=== PATIENT | female | born 1975 | race Caucasian/White ===

== ENCOUNTER 2018-06-04 09:02 | Day surgery (SDC) | payer MEDICAID ==
[~2018-06-04] VITALS: Ht 152.4 cm; Wt 60.3 kg
[~2018-06-04 09:02] MED LIST: BALANCED SALT IRRIG SOLN COMB2 500ML OP ONE
[2018-06-04] MEDS ORDERED: LACTATED RINGERS 1,000 ML IV SCH (09:15)
[2018-06-04 10:06] LABS: UCG SCREEN NEGATIVE
[2018-06-04] MEDS ORDERED: DONE5TAB33 PO (10:37)
[2018-06-04] MEDS ORDERED: SERT50TA PO (10:37)
[2018-06-04] MEDS ORDERED: GABA-290 PO (10:37)
[2018-06-04] MEDS ORDERED: GABA-531 PO (10:37)
[2018-06-04] MEDS ORDERED: IBUP-2271 PO (10:37)
[2018-06-04] MEDS ORDERED: FENTANYL CITRATE/PF 50MCG/ML 2ML VIAL ONE (10:57)
[2018-06-04] MEDS ORDERED: MIDAZOLAM HCL 2 MG/2 ML VIAL ONE (10:57)
[2018-06-04] MEDS ORDERED: PROPOFOL 200MG/20ML VIAL IV ONE (10:57)
[2018-06-04] MEDS ORDERED: CLINDAMYCIN 600MG PREMIX 50 ML IV ONE (11:00)
[2018-06-04] MEDS ORDERED: GLYCOPYRROLATE 0.2 MG/ML 2ML VIAL ONE (11:51)
[2018-06-04] MEDS ORDERED: MEPERIDINE HCL/PF 25MG/ML CPJ IV PRN (12:00)
[2018-06-04] MEDS ORDERED: MORPHINE SULFATE 4 MG/ML CPJ (NOT FOR IM USE) IV PRN (12:00)
[2018-06-04] MEDS ORDERED: FENTANYL CITRATE/PF 50MCG/ML 2ML VIAL IV PRN (12:00)
[2018-06-04] MEDS ORDERED: ONDANSETRON HCL 4MG/2ML INJ IV PRN (12:00)
[2018-06-04] MEDS ORDERED: ONDANSETRON HCL 4MG/2ML INJ ONE (12:02)
[2018-06-04] MEDS ORDERED: DEXAMETHASONE 4MG/ML 1ML VIAL ONE (12:02)
[2018-06-04] MEDS ORDERED: KETOROLAC 30MG/ML VIAL IV NR (14:00)
[2018-06-04 14:09] VITALS: BP 125/80
[2018-06-04] MEDS ORDERED: BALANCED SALT IRRIG SOLN 15ML ONE (15:09)
[2018-06-04] MEDS ORDERED: LIDOCAINE HCL 2%/EPINEPHRINE 1:100,000 20 ML VIAL INFIL ONE (15:09)
[2018-06-04] MEDS ORDERED: PREDNISOLONE ACETATE 1% OPHTH DROPS 1ML ONE (15:09)
[2018-06-04] MEDS ORDERED: PHENYLEPHRINE HCL 2.5% OPHTH DROPS 2ML ONE (15:09)
[2018-06-04] MEDS ORDERED: BUPIVACAINE HCL/PF 0.75% (7.5MG/ML) 10ML ONE (15:09)
[2018-06-04] MEDS ORDERED: OFLOXACIN 0.3% OPHTH SOLN 5ML ONE (15:14)
== END 2018-06-04 15:00 | disposition home or self-care (01) ==
LOC: OR 09:02
PROVIDERS: ATTEND Ophthalmology
DX: S02.31XA Fracture of orbital floor, right side, initial encounter for closed fracture (principal); X58.XXXA Exposure to other specified factors, initial encounter; Y93.89 Activity, other specified; Y92.89 Other specified places as the place of occurrence of the external cause; Y99.8 Other external cause status; F41.9 Anxiety disorder, unspecified; F32.9 Major depressive disorder, single episode, unspecified; F17.210 Nicotine dependence, cigarettes, uncomplicated; Z88.0 Allergy status to penicillin; Z88.8 Allergy status to other drugs, medicaments and biological substances; Z79.899 Other long term (current) drug therapy; Z98.890 Other specified postprocedural states; Z79.1 Long term (current) use of non-steroidal anti-inflammatories (NSAID)
CPT/HCPCS: 21385; 81025; J1100; J2250; J2405; J3010; J3490; J7120; J2704